=== PATIENT | female | born 1985 | race Caucasian/White ===

== ENCOUNTER 2017-02-27 17:49 | Emergency (ER) | payer SELFPAY ==
[2017-02-27] MEDS ORDERED: SODIUM CHLORIDE 0.9% 1000ML 1,000 ML IVS ONE ×2 (18:22→19:53)
[2017-02-27] MEDS ORDERED: KETOROLAC TROMETHAMINE INJ 30 MG/ML VIAL IV ONE (18:22)
[2017-02-27] MEDS ORDERED: HYDROmorphone HCL INJ 2 MG/ML VIAL IV ONE (19:52)
--- NOTE | 2017-02-27 19:55 | CT ---
PROCEDURE: Abdoment/Pelvis w/o Contrast HISTORY: History of kidney stones Indication: Same as above Comparison: None Technique: CT of the abdomen and pelvis was done without intravenous contrast. Images were obtained from the lung base to the level of the pubic symphysis in axial plane, followed by orthogonal sagittal and coronal reconstruction. Oral contrast was not given for the study. This exam was performed according to our departmental dose-optimization program, which includes automated exposure control, adjustment of the mA and/or KV according to the patient's size and/or use of iterative reconstruction technique. FINDINGS: Images through the lung bases do not show any focal infiltrates or pleural effusions. The liver, pancreas, spleen and the bilateral adrenal glands appear unremarkable, given the limitation of lack of intravenous contrast. There is prior cholecystectomy The there are few tiny subcentimeter nonobstructive bilateral renal calculi, worse on the right side The urinary bladder is unremarkable, without any evidence of wall thickening, calculi or filling defects. The small bowel appears unremarkable, without any evidence of small bowel obstruction or bowel wall thickening. There is no CT evidence of pericecal inflammatory change or ileocecal mesenteric adenitis. The ileocecal junction appears unremarkable. The appendix is not visualized There is no CT evidence of acute colonic diverticulitis or colitis or large bowel obstruction. There is no pathological lymphadenopathy in the retroperitoneum or in the pelvic region. There is no evidence of free fluid or free air in the abdomen or the pelvic region. There is no clinically significant abdominal aortic aneurysm. There is no clinically significant inguinal or ventral hernia. Benign left ovarian follicles are seen, not requiring any imaging follow-up The visualized lumbar spine is unremarkable. The paravertebral soft tissues are unremarkable. The remainder of the pelvic structures are unremarkable. IMPRESSION: Multiple punctate nonobstructive bilateral renal calculi, worse on the right side Electronically signed by: Ramsye Arita MD 02/27/2017 7:54 PM [employer] Workstation: [id number]
--- NOTE | 2017-02-27 20:00 | ED.PDOC ---
History of Present Illness - General Chief Complaint: Problem Stated Complaint: ABDOMINAL PAIN Time Seen by Provider: 02/27/17 18:21 Source: patient, RN notes reviewed, Vital Signs reviewed Exam Limitations: no limitations Additional Information: Pt reports pain for 2 days to her left lower abdoemen and flank. She reports nausea but no emesis. - History of Present Illness Timing/Duration: getting worse, other - 2 days Quality: moderate, sharpness Onset Location: LLQ, left flank Activites at Onset: none Prior abdominal problems: similar symptoms - similar to kidney stones Improving Factors: rest Worsening Factors: movement Associated Symptoms: other - nausea without vomiting Allergies/Adverse Reactions: Allergies NO KNOWN ALLERGY Allergy (Verified 02/27/17 18:15) Home Medications: Ambulatory Orders Acetamin W/Cod #3 Tab [Tylenol #3 Tab] 1 ea PO Q4-6H PRN #20 tab 02/27/17 Review of Systems - Review of Systems Constitutional: States: no symptoms reported EENTM: States: no symptoms reported Respiratory: States: no symptoms reported Cardiology: States: no symptoms reported Gastrointestinal/Abdominal: States: see HPI, abdominal pain - LLQ and Left flank Genitourinary: States: see HPI Musculoskeletal: States: no symptoms reported Skin: States: no symptoms reported Neurological: States: no symptoms reported Endocrine: States: no symptoms reported Hematologic/Lymphatic: States: no symptoms reported Past Medical History (General) - Patient Medical History Hx Seizures: No Hx Stroke: No Hx Asthma: No Hx Cardiac Disorders: No Hx Hypertension: No Hx Thyroid Disease: No Hx Diabetes: No Hx Gastroesophageal Reflux: Yes Hx Renal Disease: - STONES Surgical History: cholecystectomy - Vaccination History Hx Influenza Vaccination: Yes - 2015 Family Medical History - Family History Mother Family History: Unknown Physical Exam - Physical Exam General Appearance: Agitated, Well Developed, Well Groomed, Well Hydrated, Well Nourished Eyes, Ears, Nose, Throat Exam: PERRL/EOMI, normal ENT inspection, pharynx normal Neck: non-tender, full range of motion, supple Cardiovascular/Respiratory: no respiratory distress, tachycardia - mild Gastrointestinal/Abdominal: non tender, soft Back Exam: normal inspection, no CVA tenderness, no vertebral tenderness Extremity: normal range of motion, non-tender, normal inspection 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 Pain improved after Dilaudid. - Results/Orders Results/Orders: CT Abd/Pelvis noncontrast: IMPRESSION: Multiple punctate nonobstructive bilateral renal calculi, worse on the right side 02/27/17 18:16 URINE CULTURE W/COLONY COUNT Stat 02/27/17 19:53 Sodium Chloride 0.9% 1000ML [Ns 1000 ml] 1,000 ml IVS ONCE Laboratory Results - last 24 hr 02/27/17 02/27/17 02/27/17 18:16 18:45 18:45 WBC 7.2 RBC 4.91 Hgb 14.5 Hct 42.2 MCV 86.0 MCH 29.5 MCHC 34.3 RDW 13.5 Plt Count 313 MPV 7.9 Absolute Neuts (auto) 4.10 Absolute Lymphs (auto) 2.20 Absolute Monos (auto) 0.60 Absolute Eos (auto) 0.20 Absolute Basos (auto) 0.10 Neutrophils % 57.3 Lymphocytes % 30.6 Monocytes % 8.3 Eosinophils % 3.1 Basophils % 0.7 Sodium 139 Potassium 3.6 Chloride 106 Carbon Dioxide 25 Anion Gap 11.6 L BUN 8 Creatinine 0.70 BUN/Creatinine Ratio 11.4 Random Glucose 100 Serum Osmolality 276.0 Calcium 9.4 Total Bilirubin 0.2 AST 24 ALT 21 Alkaline Phosphatase 74 Serum Total Protein 7.5 Albumin 4.4 Globulin 3.1 Albumin/Globulin Ratio 1.4 Serum HCG, Qual Urine Color Yellow Urine Appearance Clear Urine pH 7.5 Ur Specific [place] 1.015 Urine Protein Negative Urine Glucose (UA) Negative Urine Ketones Negative Urine Blood Negative Urine Nitrite Negative Urine Bilirubin Negative Urine Urobilinogen 0.2 Ur Leukocyte Esterase Small H Urine RBC 1-3 Urine WBC 1-3 Ur Epithelial Cells 20-30 Amorphous Sediment 1+ Urine Bacteria 1+ Urine Mucus Small 02/27/17 18:45 WBC RBC Hgb Hct MCV MCH MCHC RDW Plt Count MPV Absolute Neuts (auto) Absolute Lymphs (auto) Absolute Monos (auto) Absolute Eos (auto) Absolute Basos (auto) Neutrophils % Lymphocytes % Monocytes % Eosinophils % Basophils % Sodium Potassium Chloride Carbon Dioxide Anion Gap BUN Creatinine BUN/Creatinine Ratio Random Glucose Serum Osmolality Calcium Total Bilirubin AST ALT Alkaline Phosphatase Serum Total Protein Albumin Globulin Albumin/Globulin Ratio Serum HCG, Qual Negative Urine Color Urine Appearance Urine pH Ur Specific [place] Urine Protein Urine Glucose (UA) Urine Ketones Urine Blood Urine Nitrite Urine Bilirubin Urine Urobilinogen Ur Leukocyte Esterase Urine RBC Urine WBC Ur Epithelial Cells Amorphous Sediment Urine Bacteria Urine Mucus Departure - Departure Clinical Impression: Renal colic Time of Disposition: 20:45 Disposition: Discharge to Home or Self Care Condition: Fair Departure Forms: ED Discharge - Pt. Copy, Patient Portal Self Enrollment Instructions: DI for Kidney Stones Prescriptions: Acetamin W/Cod #3 Tab [Tylenol #3 Tab] 1 ea PO Q4-6H PRN #20 tab PRN Reason: Pain -- Moderate To Severe Home Medications: Ambulatory Orders Acetamin W/Cod #3 Tab [Tylenol #3 Tab] 1 ea PO Q4-6H PRN #20 tab 02/27/17 Additional Instructions: Stay well hydrated. Ok to take Ibuprofen 800 mg three times a day as needed for pain. Return to ER if condition worsens. Follow-up with primary care provider if condition persists in 3 to 5 days.
[2017-02-27] MEDS ORDERED: ACETAMINOPHEN W/COD #3 TAB (ER Disp) PO PRN (20:45)
[2017-02-27 21:30] VITALS: BP 128/82; TEMP 98.6; O2SAT 99
== END 2017-02-27 21:30 | disposition home or self-care (01) ==
LOC: ER 17:49
DX: N20.0 Calculus of kidney (principal); K21.9 Gastro-esophageal reflux disease without esophagitis; Z90.49 Acquired absence of other specified parts of digestive tract
CPT/HCPCS: 36415; 74176; 80053; 81001; 84703; 85025; 87086; J1170; J1885; J7030